=== PATIENT | female | born 1985 | race Two or more races ===

== ENCOUNTER 2023-04-08 23:20 | Emergency (ER) | payer SELFPAY ==
[~2023-04-08] VITALS: Ht 162.6 cm; Wt 54.5 kg
[2023-04-08 23:42] VITALS: TEMP 98.4
[2023-04-08 23:55] VITALS: BP 121/82; PULSE 90; RESP 18
== END 2023-04-09 00:44 | disposition home or self-care (01) ==
LOC: EMS 23:22
DX: R07.89 Other chest pain (principal); F43.20 Adjustment disorder, unspecified
CPT/HCPCS: 99283; Z7502